=== PATIENT | male | born 1970 | race Two or more races ===

== ENCOUNTER 2016-05-17 20:25 | Emergency (ER) | payer MEDICAID, OTHER ==
[~2016-05-17] VITALS: Ht 162.6 cm; Wt 72.6 kg
[2016-05-17 20:45] VITALS: BP 112/77
[2016-05-17] MEDS ORDERED: IBUPROFEN 600 MG TAB PO ONE (22:45)
== END 2016-05-17 22:47 | disposition home or self-care (01) ==
LOC: ER 20:25
DX: S46.911A Strain of unspecified muscle, fascia and tendon at shoulder and upper arm level, right arm, initial encounter (principal); S50.00XA Contusion of unspecified elbow, initial encounter; W20.8XXA Other cause of strike by thrown, projected or falling object, initial encounter; Y93.89 Activity, other specified; Y99.8 Other external cause status; Y92.89 Other specified places as the place of occurrence of the external cause
CPT/HCPCS: 73080

== ENCOUNTER 2023-06-30 20:31 | Emergency (ER) | payer OTHER ==
[~2023-06-30] VITALS: Ht 157.5 cm; Wt 74.9 kg
[2023-06-30 20:55] VITALS: BP 127/62; PULSE 77; RESP 18; O2SAT 97
[2023-07-01] MEDS ORDERED: AUG875T PO (00:23)
== END 2023-07-01 01:32 | disposition home or self-care (01) ==
LOC: ER 20:31
DX: S20.419A Abrasion of unspecified back wall of thorax, initial encounter (principal); J02.9 Acute pharyngitis, unspecified; M79.672 Pain in left foot; W54.0XXA Bitten by dog, initial encounter; Y93.89 Activity, other specified; Y92.89 Other specified places as the place of occurrence of the external cause; Y99.8 Other external cause status